=== PATIENT | male | born 1965 | race Caucasian/White ===

== ENCOUNTER → 2016-10-24 | Outpatient (CLI) | payer BC ==
[2016-10-24 08:46] LABS: Basophils % (A) 1 %; CH 27.1; CHCM 32.9; Eosinophils # (A) 0.3 k/uL (0-0.7); Eosinophils % (A) 5 %; HCT 42.7 % (39.0-53.0); HDW 2.82; HGB 14.5 gm/dL (13.0-17.5); Luc # (Auto) 0.18; Luc % (Auto) 4; Lymphocytes # (A) 1.4 k/uL (1.0-4.8); Lymphocytes % (A) 29 %; MCH 28.1 pg (25.0-35.0); MCV 82.7 fL (80.0-100.0); Mean Platelet Volume 7.2; Monocytes # (A) 0.5 k/uL (0-1.0); Monocytes % (A) 9 %; Neutrophils # (A) 2.6 k/uL (1.3-7.7); Neutrophils % (A) 53 %; RBC 5.16 m/uL (4.30-5.90); RDW 12.8 % (11.5-15.5); WBC (Perox) 4.85
[2016-10-24 12:26] LABS: ALT 44 U/L (21-72); AST 30 U/L (17-59); Alkaline Phosphatase 63 U/L (38-126); Anion Gap 11 mmol/L; Blood Urea Nitrogen 12 mg/dL (9-20); Calcium 9.7 mg/dL (8.4-10.2); Carbon Dioxide 28 mmol/L (22-30); Chloride 102 mmol/L (98-107); Cholesterol 162 mg/dL (<200); Glucose 104 mg/dL (74-99); HDL Cholesterol 38 mg/dL (40-60); Non-African American GFR(MDRD) >60 (>60 ml/min/1.73 sqM); Potassium 4.5 mmol/L (3.5-5.1); Sodium 141 mmol/L (137-145); Total Bilirubin 0.7 mg/dL (0.2-1.3); Total Protein 8.2 g/dL (6.3-8.2); Triglycerides 118 mg/dL (<150)
[2016-10-24 12:59] LABS: Prostate Specific Antigen 1.35 ng/mL (0.00-4.00)
== END ==
LOC: LABWHC1 06:32
PROVIDERS: ATTEND Family Medicine
DX: Z00.00 Encounter for general adult medical examination without abnormal findings (principal); I10 Essential (primary) hypertension
CPT/HCPCS: 36415; 80053; 80061; 84153; 84443; 85025

== ENCOUNTER → 2018-11-11 | Outpatient (CLI) | payer BC ==
[2018-11-11 07:31] LABS: Basophils % (A) 1 %; Eosinophils # (A) 0.3 k/uL (0-0.7); Eosinophils % (A) 5 %; HCT 44.1 % (39.0-53.0); HGB 14.6 gm/dL (13.0-17.5); Lymphocytes # (A) 1.2 k/uL (1.0-4.8); Lymphocytes % (A) 24 %; MCH 26.6 pg (25.0-35.0); MCHC 33.2 g/dL (31.0-37.0); MCV 80.3 fL (80.0-100.0); Mean Platelet Volume 7.2; Monocytes # (A) 0.4 k/uL (0-1.0); Monocytes % (A) 8 %; Neutrophils # (A) 2.9 k/uL (1.3-7.7); Neutrophils % (A) 58 %; Platelet Count 292 k/uL (150-450); RDW 13.8 % (11.5-15.5)
[2018-11-11 11:34] LABS: Albumin 4.6 g/dL (3.80-4.90); Albumin/Globulin Ratio 1.64 (1.60-3.17); Calcium 9.9 mg/dL (8.7-10.3); Globulin 2.8 g/dL (1.6-3.3); LDL Cholesterol,Calculated 100.2 mg/dL (0.0-131.0); Potassium 4.7 mmol/L (3.5-5.5); Total Bilirubin 0.7 mg/dL (0.3-1.2); Total Protein 7.4 g/dL (6.2-8.2); VLDL Calculation 21.8 mg/dL (5.00-40.00)
[2018-11-11 11:43] LABS: T4, Free (Free Thyroxine) 1.1 ng/dL (0.80-1.80)
[2018-11-11 14:51] LABS: Hemoglobin A1C 6.1 % (4.0-6.0)
== END | disposition home or self-care (01) ==
LOC: LABWHC1 06:36
PROVIDERS: ATTEND Nurse Practitioner Women's Health
DX: Z00.00 Encounter for general adult medical examination without abnormal findings (principal); I10 Essential (primary) hypertension; Z51.81 Encounter for therapeutic drug level monitoring
CPT/HCPCS: 36415; 80053; 80061; 83036; 84153; 84439; 84443; 85025

== ENCOUNTER → 2019-05-16 | Outpatient (CLI) | payer BC | END | disposition home or self-care (01) | LOC: CPPFTMAIN 07:35 | PROVIDERS: ATTEND Internal Medicine Critical Care Medicine | DX: R05 Cough (principal) | CPT/HCPCS: 94060; 94726; 94729 ==

== ENCOUNTER → 2019-05-30 | Outpatient (CLI) | payer BC ==
[2019-05-30 08:00] LABS: ALT 27 U/L (21-72); AST 31 U/L (17-59); African American GFR (CKD) >90 (>60 ml/min/1.73 sqM); Albumin 4.4 g/dL (3.5-5.0); Alkaline Phosphatase 65 U/L (38-126); Anion Gap 10 mmol/L; Blood Urea Nitrogen 12 mg/dL (9-20); Calcium 9.4 mg/dL (8.4-10.2); Carbon Dioxide 26 mmol/L (22-30); Chloride 104 mmol/L (98-107); Glucose 104 mg/dL (74-99); Sodium 140 mmol/L (137-145); Total Bilirubin 0.8 mg/dL (0.2-1.3); Total Protein 8.2 g/dL (6.3-8.2)
[2019-05-30 08:12] LABS: Potassium 4.7 mmol/L (3.5-5.1)
--- NOTE | 2019-05-30 08:14 | CT ---
EXAMINATION TYPE: CT chest w con DATE OF EXAM: 05/30/2019 COMPARISON: None HISTORY: Chronic cough CT DLP: 373.8 mGycm Automated exposure control for dose reduction was used. CONTRAST: CT scan of the chest is performed with IV Contrast, patient injected with 100 mL of Isovue 300. FINDINGS: LUNGS: Innumerable pulmonary nodules and masses have been identified bilaterally with right upper lob e pleural-based mass noted measuring 3.9 x 2.4 cm. The Largest mass left lung is identified within th e left lower lobe superior segment measuring 3.3 x 3.0 cm. Mediastinum and hilum: There is evidence of mediastinal adenopathy with high right paratracheal lymph node measuring 1.5 cm in short axis. Low right paratracheal lymph node measures about 1.8 cm in shor t axis. Left paratracheal lymph node measures 1.3 cm in short axis. Subcarinal adenopathy measuring 1 .7 cm. Right hilar adenopathy measuring 3.0 cm. Left hilar adenopathy measuring up to 2.4 cm. UPPER ABDOMEN: Enhancing lesion in the dome of the liver measuring 2.2 cm. Metastatic lesions is not excluded. Additional lesion noted medial segment left hepatic lobe measuring 1 cm. Right renal cyst. OTHER: No additional significant abnormality is seen. IMPRESSION: 1. Innumerable pulmonary nodules and masses as discussed above with hilar and mediastinal adenopathy. Metastatic disease is suspected. 2. Metastatic metastatic disease is not excluded as well. A [place] level critical message alert has been initiated for Jv Post MD via the [facility] Critical Results System on 05/30/2019 8:11 AM. This message alert has been sent to Jv black MD via the preferences provided by the clinician for the receipt of Radiology Critical Findings . Message ID [id number].
[2019-05-30 08:50] LABS: C Reactive Protein <5.0 mg/L (<10.0)
[2019-05-30 16:11] LABS: Rheumatoid Factor, Qnt <4 IU/mL (0-15)
== END | disposition home or self-care (01) ==
LOC: RADCTMAIN 07:06
PROVIDERS: ATTEND Internal Medicine Critical Care Medicine
DX: R91.8 Other nonspecific abnormal finding of lung field (principal); R05 Cough
CPT/HCPCS: 80053; 85652; 82164; 86140; 86431; 82785; 86038; 71260; Q9967

== ENCOUNTER → 2019-06-06 | Day surgery (SDC) | payer BC ==
[2019-06-04 14:56] VITALS: BMI 28.7
[~2019-06-06] MED LIST: ALBUTEROL NEB (CONC) 2.5 MG/0.5 ML INHALATION ONE; DEXAMETHASONE SOD PHOSPHATE 10 MG/ML 1 ML VIAL IV ONE; LACTATED RINGERS 1,000 ML IV ONE; LACTATED RINGERS 1,000 ML IV SCH; LIDOCAINE 1% 20 ML VIAL (10MG/ML) FOR IV START INTRADERMA PRN; LIDOCAINE 1% INJ 10MG/ML (20 ML MDV) ONE; LIDOCAINE 2% (PF) 20 MG/ML 5 ML VIAL INHALATION ONE; LIDOCAINE VISCOUS 300 MG/15 ML CUP MUCOUS MEM ONE; MIDAZOLAM 2 MG/2 ML VIAL ONE; ONDANSETRON 4 MG/2 ML VIAL IVP ONE; PROPOFOL 10 MG/ML 20 ML VIAL IV ONE; ROCURONIUM BROMIDE 10 MG/ML 10 ML VIAL IV ONE; SODIUM CHLORIDE 0.9% 1,000 ML IV SCH; SUCCINYLCHOLINE CHLORIDE 100 MG/5 ML SYR IV ONE; fentaNYL (PF) 50 MCG/ML 2 ML AMP ONE
--- NOTE | 2019-06-06 11:34 | CT ---
EXAMINATION TYPE: CT Chest wo con Veran Protocol DATE OF EXAM: 06/06/2019 COMPARISON: 05/30/2019 CT chest HISTORY: Pre bronchial navigation CT DLP: 627 mGycm Automated exposure control for dose reduction was used. TECHNIQUE: Veran Protocol CT for navigational bronchoscopy. FINDINGS: There is redemonstration of innumerable pulmonary nodules as seen on the prior CT of 05/30/2019. Agai n within the right upper lobe the largest is a mass extending into the pleural surface measuring appr oximately 3.9 cm. In the left lower lobe the largest is again approximately 3.3 cm. These nodules are spiculated and highly suspicious for metastasis. No new pleural effusion or pneumothorax. Mediastinal adenopathy is redemonstrated. Right paratracheal lymph node measures approximately 1.3 cm in short axis and additional right paratracheal lymph node measures 1.6 cm in short axis just above the nabeel. Mild coronary calcifications. The previously seen arterial enhancing hepatic approximately 2.2 cm partially visualized renal cyst i s seen on the right. Small splenule the spleen. Scattered colonic diverticula. Sclerotic lesion of th e left humeral head is likely a bone island. Mild degenerative changes of the spine. Masses are danisha r demonstrated on the CT with contrast on 05/30/2019. IMPRESSION: HIGHLY SUSPICIOUS BILATERAL PULMONARY MASSES AND NODULES MOST LIKELY ON THE BASIS OF METASTASIS. ABNO RMAL MEDIASTINAL ADENOPATHY AND HEPATIC LESIONS ARE REDEMONSTRATED.
[2019-06-06 13:44] VITALS: TEMP 97.3
--- NOTE | 2019-06-06 14:23 | PCN ---
PROCEDURE NOTE PREOPERATIVE DIAGNOSIS: Bilateral lung masses/consolidation. POSTOPERATIVE DIAGNOSIS: Bilateral lung masses/consolidation. PROCEDURE PERFORMED: Navigational bronchoscopy, transbronchial biopsy, bronchioalveolar lavage of the lingula. PROCEDURE: This procedure was done in the operating room. A Veran CAT scan of the chest was done, using the [employer] navigational system. The CAT scan was uploaded and appropriate mapping on the various lung masses was done in both right and left lungs. Following that, all this information was uploaded into a USB port and then into the navigational tower. The patient was brought into the operating room, and the patient was induced and placed on mechanical ventilator by Anesthesia. The patient was intubated by #9 orotracheal tube. Following that, the bronchoscope was inserted through the oral tracheal tube and a quick airway inspection was done. Visualized airways included distal trachea, bilateral mainstem bronchi, right upper lobe bronchus, right middle, right lower lobe bronchus, left upper and left lower bronchi along with various segments and sub- segments. The right middle lobe bronchus was quite narrowed yet is patent. There was also inflammatory changes and narrowing of the lingular segment, that was narrowed, yet patent. A quick bronchioalveolar lavage of the lingula was done. A total of 80 mL of of fluid was infused and 20 mL was aspirated. The bronchoscope was then moved to the distal trachea and the appropriate calibration was done using the main nabeel and a secondary nabeel on the left as reference points. Using the navigational system, transbronchial biopsies of the left lung was done targeting these lung masses. Transbronchial biopsies of the right lung were also done mainly in the right upper lobe and right middle lobe area using navigational guidance. No bleeding was encountered. Total amount of bleed was less than 5 mL. Therapeutic airway suctioning was done. Bronchoscope was removed and the patient was extubated and transferred to recovery in stable condition. Further recommendations are to follow based on results of transbronchial biopsy. The patient will be having a chest x-ray prior to him being discharged from the hospital. We will continue to follow. MMODL / IJN: [id number] / MTDD
[2019-06-06 14:30] VITALS: RESP 18
[2019-06-06 14:50] VITALS: BP 105/74; PULSE 57
--- NOTE | 2019-06-06 15:31 | XR ---
EXAMINATION TYPE: XR chest 1V portable DATE OF EXAM: 06/06/2019 COMPARISON: Prior chest x-ray 05/28/2019 HISTORY: Status post lung biopsy TECHNIQUE: Single frontal view of the chest is obtained. FINDINGS: Bilateral nodularity is noted within the lungs. There is no evident pneumothorax. No sizab le effusion. Heart size is stable. IMPRESSION: No evident complication status post lung biopsies.
== END ==
LOC: ORWHC2ENDO 10:02
PROVIDERS: ATTEND Internal Medicine Critical Care Medicine
DX: R91.8 Other nonspecific abnormal finding of lung field (principal); R94.8 Abnormal results of function studies of other organs and systems; R05 Cough; Z79.899 Other long term (current) drug therapy; I10 Essential (primary) hypertension; Z82.49 Family history of ischemic heart disease and other diseases of the circulatory system; Z83.3 Family history of diabetes mellitus; Z97.2 Presence of dental prosthetic device (complete) (partial)
CPT/HCPCS: 87798 ×3; 87496; 87498; 87529 ×2; 88108; 88305; 88312; 87252; 87502; 87634; 87070; 87205; 87116; 87102; 87206; 71045; 71250; 31628; 31624; 31627; J2250; J2001; J3010; J0330; J2704; 31625

== ENCOUNTER → 2019-06-20 | Outpatient (CLI) | payer BC | END | disposition home or self-care (01) | LOC: LABWHC1 09:16 | PROVIDERS: ATTEND Internal Medicine Critical Care Medicine | DX: D86.0 Sarcoidosis of lung (principal) | CPT/HCPCS: 36415; 86001; 86606; 86609 ==

== ENCOUNTER → 2019-08-25 | Outpatient (CLI) | payer BC ==
--- NOTE | 2019-08-26 08:11 | CT ---
EXAMINATION TYPE: CT chest w con DATE OF EXAM: 08/25/2019 COMPARISON: CTs dated 05/30/2019 06/06/2019 HISTORY: Sarcoidosis. CT DLP: 429.9 mGycm. Automated Exposure Control for Dose Reduction was Utilized. TECHNIQUE: CT scan of the thorax is performed following with IV Contrast, patient injected with 100m l mL of Isovue 300. FINDINGS: LUNGS: There are redemonstration of numerous pulmonary nodules with mediastinal adenopathy. Some of t hese contain internal calcifications. The previously seen masslike consolidation measuring 3.9 x 2.4 cm in the right upper lobe now appears as elongated scarring measuring only 1.1 cm in greatest thickn ess. The second largest in the left lower lobe previously measured 3.3 x 3.0 cm on series 4 image 30 and now measures 2.5 x 2.5 cm on series 4 image 33 and 34. The third largest in the anterior left upp er lobe previously measured 2.6 x 1.6 cm and now measures 2.3 x 1.6 cm. MEDIASTINUM: Mediastinal adenopathy is also slightly improved with the right paratracheal lymph node previously measuring 1.5 cm in short axis now measuring 1.1 cm in short axis. Pericardial effusion is seen. OTHER: Peripherally arterial enhancing hepatic lesion is similar in size and likely represents a eneida ngioma. 2.5 cm exophytic right renal cyst is partially visualized. Small splenule adjacent to the renee patricia spleen. Mild degree hepatic steatosis slightly limiting evaluation for hepatic masses. Minimal de generative change of the spine. IMPRESSION: 1. Smaller size of the numerous bilateral pulmonary nodules, stated has biopsy proven sarcoidosis. Th e masslike consolidation previously measuring 2.9 cm in thickness in the right upper lobe now measure s only 1.1 cm in thickness. Mediastinal adenopathy has also improved. 2. Solitary hepatic lesion likely represents a hemangioma and has demonstrated short-term stability.
== END | disposition home or self-care (01) ==
LOC: RADCTMAIN 15:59
PROVIDERS: ATTEND Internal Medicine Critical Care Medicine
DX: D86.0 Sarcoidosis of lung (principal)
CPT/HCPCS: 71260; Q9967

== ENCOUNTER → 2020-01-15 | Outpatient (CLI) | payer BC ==
--- NOTE | 2020-01-15 16:56 | CT ---
EXAMINATION TYPE: CT chest w con DATE OF EXAM: 01/15/2020 COMPARISON: August 25, 2019 HISTORY: SARCOIDOSIS CT DLP: 380.8 mGycm Automated exposure control for dose reduction was used. CONTRAST: CT scan of the chest is performed with IV Contrast, patient injected with 80 mL of Isovue 300. FINDINGS: LUNGS: Innumerable scattered bilateral pulmonary nodules are redemonstrated without significant inter marlys change. Scarring right upper lobe. The findings are compatible with biopsy-proven sarcoidosis. MEDIASTINUM: Stable mediastinal adenopathy. Hilar adenopathy is stable. Aorta is of normal caliber. T he heart is mildly enlarged. UPPER ABDOMEN: Partially imaged hypodense right renal lesion is stable. OTHER: No additional significant abnormality is seen. IMPRESSION: 1. Stable innumerable pulmonary nodules and mediastinal and hilar adenopathy compatible biopsy proven sarcoidosis.
== END | disposition home or self-care (01) ==
LOC: RADCTMAIN 15:30
PROVIDERS: ATTEND Internal Medicine Critical Care Medicine
DX: R91.8 Other nonspecific abnormal finding of lung field (principal); R59.0 Localized enlarged lymph nodes
CPT/HCPCS: 71260; Q9967

== ENCOUNTER → 2020-06-01 | Outpatient (CLI) | payer BC ==
--- NOTE | 2020-06-01 12:07 | CT ---
EXAMINATION TYPE: CT chest wo con DATE OF EXAM: 06/01/2020 COMPARISON: Prior CT chest 01/15/2020 HISTORY: Sarcoidosis CT DLP: 370.8 mGycm. Automated Exposure Control for Dose Reduction was Utilized. TECHNIQUE: CT scan of the thorax is performed without IV contrast. FINDINGS: LUNGS: The lungs are showing a similar appearance with scattered nodules, subpleural nodules similar to prior exam, there are areas of abnormal soft tissue bandlike areas within the bilateral lungs as w ell as nodular densities with stellate margins similar to prior exam. Some nodules show calcified don earance. There is no pleural effusion or pneumothorax seen. The tracheobronchial tree is patent. MEDIASTINUM: Lack of IV contrast is noted to limit evaluation for mediastinal and especially hilar ad enopathy. There is no change in the mediastinal nodes seen on prior exam. No cardiomegaly or perica rdial effusion is seen. Some coronary artery calcification is present OTHER: Exophytic lesion extending from the upper pole the right kidney measures approximately 3 cm in greatest dimension, density measurement is not leather goods sales representative of a simple cyst. Ankylosis seen in th e midthoracic spine is again noted, there is multilevel spondylosis. IMPRESSION: Similar findings within the chest. Findings consistent with sarcoidosis. Indeterminate ri ght renal lesion may represent proteinaceous cyst. Limited imaging could BE performed for better eval uation.
== END | disposition home or self-care (01) ==
LOC: RADCTMAIN 06:59
PROVIDERS: ATTEND Internal Medicine Critical Care Medicine
DX: D86.0 Sarcoidosis of lung (principal)
CPT/HCPCS: 71250

== ENCOUNTER → 2020-07-01 | Outpatient (CLI) | payer BC | END | disposition home or self-care (01) | LOC: LABWHC1 07:35 | PROVIDERS: ATTEND Internal Medicine Critical Care Medicine | DX: D86.0 Sarcoidosis of lung (principal) | CPT/HCPCS: 36415; 82164 ==

== ENCOUNTER → 2020-12-28 | Outpatient (CLI) | payer BC ==
--- NOTE | 2020-12-28 19:37 | CT ---
EXAMINATION TYPE: CT chest w con DATE OF EXAM: 12/28/2020 COMPARISON: Chest CT June 01, 2020 and older studies HISTORY: Sarcoidosis of lung CT DLP: 448.20 mGycm. Automated Exposure Control for Dose Reduction was Utilized. TECHNIQUE: CT scan of the thorax is performed following with IV Contrast, patient injected with 100 mL of Isovue 300. FINDINGS: LUNGS: Scattered areas of spiculated nodules and/or nodular consolidation bilaterally greatest in the upper lungs is redemonstrated. There are new when more prominent areas noted from most recent CT. No pleural effusion or pneumothorax identified bilaterally. MEDIASTINUM: There are persistent enlarged bilateral hilar confluent lymph nodes seen better on this study with contrast. There are additional prominent enlarged mediastinal lymph nodes redemonstrated . For reference right paratracheal 2.0 x 1.5 cm lymph node axial image 17 is fairly stable from prior studies. No cardiomegaly or pericardial effusion is seen. Mild to moderate coronary artery calcific ation redemonstrated. OTHER: Subareolar bilateral gynecomastia again seen. Hyperdense roughly 1.9 cm lesion in the right he patic dome axial image 50 favor/filling hemangioma and is stable. Exophytic 2.9 cm proteinaceous cys t upper pole posteriorly right kidney image 72 is stable in size from most recent prior. Some ossific fusion of vertebra in the lower thoracic spine is redemonstrated IMPRESSION: Patient has adenopathy and parenchymal changes presumed from known sarcoidosis. Adenopath y changes fairly stable from prior studies. Parenchymal changes show interval worsening or progressio n. Other etiologies not entirely excluded.
== END | disposition home or self-care (01) ==
LOC: RADCTMAIN 18:49
PROVIDERS: ATTEND Internal Medicine Critical Care Medicine
DX: D86.0 Sarcoidosis of lung (principal)
CPT/HCPCS: 71260; Q9967

== ENCOUNTER → 2021-02-18 | Outpatient (CLI) | payer BC ==
[2021-02-18 15:04] LABS: Basophils # (A) 0.04 X 10*3/uL (0.00-0.10); Basophils % (A) 0.7 %; Eosinophils # (A) 0.07 X 10*3/uL (0.04-0.35); Eosinophils % (A) 1.2 %; HCT 42.7 % (39.6-50.0); HGB 13.7 g/dL (13.0-17.0); Lymphocytes # (A) 1.16 X 10*3/uL (0.90-5.00); Lymphocytes % (A) 19.1 %; MCH 27.1 pg (27.0-32.0); MCHC 32.1 g/dL (32.0-37.0); MCV 84.4 fL (80.0-97.0); Mean Platelet Volume 10.3 fL (9.5-12.2); Monocytes # (A) 0.69 X 10*3/uL (0.20-1.00); Monocytes % (A) 11.4 %; Neutrophils # (A) 4.06 X 10*3/uL (1.80-7.70); Neutrophils % (A) 66.9 %; Platelet Count 275 X 10*3/uL (140-440); RBC 5.06 X 10*6/uL (4.40-5.60); RDW 13.5 % (11.5-14.5); WBC 6.06 X 10*3/uL (4.50-10.00)
[2021-02-18 19:21] LABS: African American GFR (CKD) 115.7 (60.0-200.0); Albumin 4.5 g/dL (3.80-4.90); Albumin/Globulin Ratio 1.29 (1.60-3.17); Anion Gap 11.1 mmol/L (4.00-12.00); Calcium 9.6 mg/dL (8.7-10.3); Carbon Dioxide 24.9 mmol/L (21.6-31.8); Globulin 3.5 g/dL (1.6-3.3); Non-African American GFR(CKD) 99.9 (60.0-200.0); Potassium 4.7 mmol/L (3.5-5.5); Total Bilirubin 0.5 mg/dL (0.2-1.2)
== END | disposition home or self-care (01) ==
LOC: LABWHC1 08:35
PROVIDERS: ATTEND Internal Medicine Critical Care Medicine
DX: D86.0 Sarcoidosis of lung (principal)
CPT/HCPCS: 36415; 80053; 82164; 85025

== ENCOUNTER → 2021-06-21 | Outpatient (CLI) | payer BC ==
--- NOTE | 2021-06-21 18:58 | CT ---
EXAMINATION TYPE: CT chest w con DATE OF EXAM: 06/21/2021 COMPARISON: CT chest 12/28/2020, CT 05/30/2019 HISTORY: sarcoidosis CT DLP: 416.3 mGycm Automated exposure control for dose reduction was used. CONTRAST: CT scan of the chest is performed with IV Contrast, patient injected with 100 mL of Isovue 300. FINDINGS: LUNGS: The lungs are remarkable for scattered areas of abnormal increased attenuation within the lung s as on prior exam, there is thought to be some improvement in aeration in some areas as well as scat tered stable areas of increased attenuation. There is no pleural effusion or pneumothorax seen. Th e tracheobronchial tree is patent. MEDIASTINUM: The right paratracheal node previously showing short axis measurement of 14 15 mm now me asures approximately 12 mm, subcentimeter nodes are present within the anterior mediastinum, there is soft tissue within the right hilar region which appears improved as well as in the subcarinal locati on. Prominence of pulmonary artery could be due to pulmonary artery hypertension No pericardial effu mirta is seen. AORTA: No additional significant abnormality is seen. OTHER: Dense focus within the right lobe of the liver towards the dome is again noted and shows nodu lar enhancement similar to prior exam and likely represents hemangioma, smaller similar focus present on axial image 55 anterolaterally within the right lobe. Possible cortical cyst is associated withou t focal the right kidney posteriorly in exophytic location and measures 4.2 cm, has increased in size compared to prior exam. There is a spinal curvature. Segmentation anomalies present at the lower tho racic spine, T9-T11. IMPRESSION: There are areas of some improvement in the scattered foci of increased attenuation withi n the lungs, some improvement in the mediastinal adenopathy with some areas of stable abnormal attenu ation within the lungs. Correlate for possible pulmonary artery hypertension.
== END | disposition home or self-care (01) ==
LOC: RADCTMAIN 17:55
PROVIDERS: ATTEND Internal Medicine Critical Care Medicine
DX: D86.2 Sarcoidosis of lung with sarcoidosis of lymph nodes (principal)
CPT/HCPCS: 71260; Q9967

== ENCOUNTER → 2022-01-23 | Outpatient (CLI) | payer BC ==
[2022-01-23 10:41] LABS: Basophils # (A) 0.07 X 10*3/uL (0.00-0.10); Basophils % (A) 1.6 %; Eosinophils # (A) 0.29 X 10*3/uL (0.04-0.35); Eosinophils % (A) 6.5 %; HCT 42.3 % (39.6-50.0); HGB 13.9 g/dL (13.0-17.0); Immature Grans, Automated 0.4 %; Lymphocytes # (A) 1.33 X 10*3/uL (0.90-5.00); Lymphocytes % (A) 29.8 %; MCHC 32.9 g/dL (32.0-37.0); MCV 82.3 fL (80.0-97.0); Mean Platelet Volume 10.1 fL (9.5-12.2); Monocytes # (A) 0.53 X 10*3/uL (0.20-1.00); Monocytes % (A) 11.9 %; NRBC Per 100 WBC 0 /100 WBCS (0.0-0.0); Neutrophils # (A) 2.23 X 10*3/uL (1.80-7.70); Neutrophils % (A) 49.8 %; Platelet Count 250 X 10*3/uL (140-440); RBC 5.14 X 10*6/uL (4.40-5.60); RDW 13.3 % (11.5-14.5); WBC 4.47 X 10*3/uL (4.50-10.00)
[2022-01-23 11:06] LABS: ALT 28 U/L (10-49); AST 22 U/L (14-35); African American GFR (CKD) 109.5 (60.0-200.0); Albumin 4.5 g/dL (3.8-4.9); Albumin/Globulin Ratio 1.41 (1.60-3.17); Alkaline Phosphatase 67 U/L (41-126); Blood Urea Nitrogen 9.9 mg/dL (9.0-27.0); Calcium 9.4 mg/dL (8.7-10.3); Carbon Dioxide 25.2 mmol/L (20.0-27.5); Chloride 103 mmol/L (96-109); Chol/HDL Ratio 4.49 Ratio; Globulin 3.2 g/dL (1.6-3.3); Glucose 130 mg/dL (70-110); LDL Cholesterol,Calculated 111.1 mg/dL (0.0-131.0); Non-African American GFR(CKD) 94.5 (60.0-200.0); Potassium 4.7 mmol/L (3.5-5.5); Sodium 139 mmol/L (135-145); Total Protein 7.7 g/dL (6.2-8.2)
== END | disposition home or self-care (01) ==
LOC: LABWHC1 08:22
PROVIDERS: ATTEND Nurse Practitioner Family
DX: Z00.00 Encounter for general adult medical examination without abnormal findings (principal); Z63.79 Other stressful life events affecting family and household
CPT/HCPCS: 36415; 80053; 80061; 82040; 82306; 84270; 84403; 84443; 85025

== ENCOUNTER 2022-07-21 09:18 | Emergency (ER) | payer BC ==
[2022-07-21 09:33] VITALS: TEMP 98.1
[2022-07-21] MEDS ORDERED: DIPH,PERTUS(ACELL)TETVAC-LF 0.5 ML VIAL IM ONE (10:17)
[2022-07-21] MEDS ORDERED: LIDOCAINE 1% INJ 10MG/ML (30 ML VIAL-PF) SQ ONE (10:17)
--- NOTE | 2022-07-21 10:54 | XR ---
EXAMINATION TYPE: XR forearm RT DATE OF EXAM: 07/21/2022 COMPARISON: NONE HISTORY: Pain Two views of the forearm demonstrate that the osseous structures appear to be intact and the joint sp aces appear to be preserved. There is no acute fracture or dislocation. Question soft tissue emphys lisa along the distal forearm correlate for laceration. IMPRESSION: 1. No acute fracture or dislocation. Correlate for soft tissue injury.
[2022-07-21] MEDS ORDERED: AMOXIC-POT CLAV 875-125MG 1 EACH TAB PO STA (11:31)
--- NOTE | 2022-07-21 11:34 | ED ---
Animal Bite HPI - General Chief Complaint: Animal Bite Stated Complaint: dog bite Time Seen by Provider: 07/21/22 10:05 Source: patient Mode of arrival: ambulatory Limitations: no limitations - History of Present Illness Initial Comments: Patient is a 57-year-old male presenting with chief complaint dog bite. Patient states that he was trying to separate his 2 dogs this morning when he sustained a bite to the right forearm. Patient does not remember when his last tetanus shot was. No numbness, tingling, weakness. - Related Data Home Medications Medication Instructions Recorded Confirmed Amoxicillin 875 mg PO Q12HR 06/04/19 06/06/19 Benzonatate [Tessalon Perles] 1 - 2 tab PO TID 06/04/19 06/06/19 Bisoprolol Fumarate 5 mg PO DAILY 06/04/19 06/06/19 Previous Rx's Medication Instructions Recorded Amoxic-Pot Clav 875-125Mg 1 tab PO Q12HR 10 Days #20 tab 07/21/22 [Augmentin 875-125] Allergies Allergy/AdvReac Type Severity Reaction Status Date / Time No Known Allergies Allergy Verified 07/21/22 09:33 Review of Systems ROS Statement: Those systems with pertinent positive or pertinent negative responses have been documented in the HPI. ROS Other: All systems not noted in ROS Statement are negative. Past Medical History Past Medical History: Hypertension Additional Past Medical History / Comment(s): lung nodule History of Any Multi-Drug Resistant Organisms: None Reported Additional Past Surgical History / Comment(s): rt pinky finger pins placed Past Anesthesia/Blood Transfusion Reactions: No Reported Reaction Past Psychological History: No Psychological Hx Reported Smoking Status: Never smoker Past Alcohol Use History: Occasional Past Drug Use History: None Reported - Past Family History Mother Family Medical History: No Reported History General Exam Limitations: no limitations General appearance: alert, in no apparent distress Head exam: Present: atraumatic, normocephalic, normal inspection Eye exam: Present: normal appearance Neck exam: Present: normal inspection Neurological exam: Present: alert, oriented X3, CN II-XII intact Psychiatric exam: Present: normal affect, normal mood Expanded Type of lesion: Present: laceration (2 puncture lee to the right forearm, 1 on the dorsal surface and one on the anterior surface) Course Vital Signs 07/21/22 07/21/22 09:31 11:48 Temperature 98.1 F Pulse Rate 79 81 Respiratory 20 18 Rate Blood Pressure 165/109 157/86 O2 Sat by Pulse 97 97 Oximetry Procedures - Laceration Laceration #1 Indication: laceration Site: upper extremity Size (cm): 2 Description: linear Depth: simple, single layer Anesthetic Used: lidocaine 1% Anesthesia Technique: local infiltration Pre-repair: wound explored, irrigated extensively Type of Sutures: nylon Size of Sutures: 4-0 Number of Sutures: 1 Technique: simple, interrupted (Loosely approximated to help healing) Patient Tolerated Procedure: well Medical Decision Making - Medical Decision Making Was pt. sent in by a medical professional or institution (, TANA, ADHESIVE PRIMER, urgent care, hospital, or senior care...) When possible be specific @ -[No] Did you speak to anyone other than the patient for history (EMS, parent, family, police, friend...)? What history was obtained from this source @ -[No] Did you review nursing and triage notes (agree or disagree)? Why? @ -[I reviewed and agree with nursing and triage notes] Were old charts reviewed (outside hosp., previous admission, EMS record, old EK G, old radiological studies, urgent care reports/EKG's, senior care records)? Report findings @ -[No old charts were reviewed] Differential Diagnosis (chest pain, altered mental status, abdominal pain women, abdominal pain men, vaginal bleeding, weakness, fever, dyspnea, syncope, headache, dizziness, GI bleed, back pain, seizure, CVA, palpatations, mental he alth)? @ -[not applicable] EKG interpreted by me (3pts min.). @ -None X-rays interpreted by me (1pt min.). @ -X-ray shows no acute osseous abnormality, no evidence of foreign body, some air noted due to laceration CT interpreted by me (1pt min.). @ -[None done] U/S interpreted by me (1pt. min.). @ -[None done] What testing was considered but not performed or refused? (CT, X-rays, U/S, labs)? Why? @ -[None] What meds were considered but not given or refused? Why? @ -[None] Did you discuss the management of the patient with other professionals (professionals i.e. Dr., PA, ADHESIVE PRIMER, lab, RT, psych nurse, social media assistant, electron beam welder setter, teacher, chief quality officer, director of casework services)? Give summary @ -[No] Was smoking cessation discussed for >3mins.? @ -[No] Was critical care preformed (if so, how long)? @ -[No] Were there social determinants of health that impacted care today? How? (Homelessness, low income, unemployed, alcoholism, drug addiction, transportation, low edu. Level, literacy, decrease access to med. care, halfway, rehab)? @ -[No] Was there de-escalation of care discussed even if they declined (Discuss DNR or withdrawal of care, Hospice)? DNR status @ -[No] What co-morbidities impacted this encounter? (DM, HTN, Smoking, COPD, CAD, Cancer, CVA, ARF, Chemo, Hep., AIDS, mental health diagnosis, sleep apnea, morbid obesity)? @ -[None] Was patient admitted / discharged? Hospital course, mention meds given and route, prescriptions, significant lab abnormalities, going to OR and other pertinent info. @ -Patient is a 57-year-old male who presented for evaluation of dog bite to the right forearm that was sustained this morning. On physical examination there are 2 puncture wounds, one on the anterior surface and one on the dorsal surface. X-ray obtained showed no foreign body. The patient's tetanus was updated today. One loose suture was placed in each laceration to help with a pproximation, wound was not fully closed. Prior to suture placement wound was thoroughly irrigated with 1 L of sterile water. Patient is educated on wound care and signs of infection. Started on Augmentin. Follow-up with PCP. Report back to ER with any new or worsening symptoms. Discussed return parameters and answered all questions. Patient conveyed verbal understanding and agreed to the plan. I discussed this case in detail with my attending Dr. Hanson Undiagnosed new problem with uncertain prognosis? @ -[No] Drug Therapy requiring intensive monitoring for toxicity (Heparin, Nitro, Insulin, Cardizem)? @ -[No] Were any procedures done? @ -Yes, suture placement, see procedure note Diagnosis/symptom? @ -Dog bite Acute, or Chronic, or Acute on Chronic? @ -Acute Uncomplicated (without systemic symptoms) or Complicated (systemic symptoms)? @ -Uncomplicated Side effects of treatment? @ -[No] Exacerbation, Progression, or Severe Exacerbation? @ -[No] Poses a threat to life or bodily function? How? (Chest pain, [place], [place], pneumonia, PE, COPD, DKA, ARF, appy, cholecystitis, CVA, Diverticulitis, Homicidal, Suicidal, threat to staff... and all critical care pts) @ -[No] Disposition Clinical Impression: Dog bite Disposition: HOME SELF-CARE Condition: Good Instructions (If sedation given, give patient instructions): Animal Bite (ED) Additional Instructions: Follow-up with PCP. Report back to ER with any new or worsening symptoms. Keep the wound clean, dry, and covered. Monitor for signs of infection, including but not limited to redness, swelling, warmth, tenderness, discharge, fever, chills, red streaking. Sutures may be removed in 7-10 days. Single suture was applied loosely to help with approximation, wound could not be fully repaired today due to the risk of infection from animal bite. Prescriptions: Amoxic-Pot Clav 875-125Mg [Augmentin 875-125] 1 tab PO Q12HR 10 Days #20 tab Is patient prescribed a controlled substance at d/c from ED?: No Referrals: Hunter Agosto Jr, [Primary Care Provider] - 1-2 days Time of Disposition: 11:33
[2022-07-21 11:50] VITALS: BP 157/86; PULSE 81; RESP 18
== END 2022-07-21 11:51 | disposition home or self-care (01) ==
LOC: EC 09:18
DX: S51.851A Open bite of right forearm, initial encounter (principal); I10 Essential (primary) hypertension; Z79.899 Other long term (current) drug therapy; W54.0XXA Bitten by dog, initial encounter
CPT/HCPCS: 73090; 90715; 99283; 96372; 12001; J2001